=== PATIENT | male | born 1975 | race Caucasian/White ===

== ENCOUNTER 2018-01-09 03:09 | Outpatient (CLI) | payer OTHER | END 2018-01-09 03:10 | disposition critical access hospital (66) | LOC: EMS 03:09 | PROVIDERS: ATTEND Surgery | DX: R55 Syncope and collapse (principal) | CPT/HCPCS: A0425; A0427 ==

== ENCOUNTER 2018-01-09 03:41 | Emergency (ER) | payer OTHER ==
[2018-01-09] MEDS ORDERED: ONDANSETRON 4 MG/2 ML VIAL IVP STA (03:49)
[2018-01-09] MEDS ORDERED: SODIUM CHLORIDE 0.9% 1,000 ML IV ONE ×2 (03:49→05:20)
[2018-01-09 04:01] LABS: BASOPHILS % (AUTO) 0.5 %; EOSINOPHILS # (AUTO) 0.1 10^3/uL (0.0-0.7); EOSINOPHILS % (AUTO) 1.5 %; HGB - HEMOGLOBIN 13.1 g/dL (14.0-18.0); LYMPHOCYTES # (AUTO) 1.6 10^3/uL (1.5-3.5); LYMPHOCYTES % (AUTO) 23.5 %; MEAN CORPUSCULAR HGB CONC 34.6 g/dL (32.0-36.0); MEAN CORPUSCULAR VOLUME 86.9 fL (80.0-94.0); MEAN PLATELET VOLUME 6.3 fL (7.4-11.4); MONOCYTES # (AUTO) 0.5 10^3/uL (0.0-1.0); MONOCYTES % (AUTO) 7.4 %; NEUTROPHILS # (AUTO) 4.7 10^3/uL (1.5-6.6); NEUTROPHILS % (AUTO) 67.1 %; PLT - PLATELET COUNT 216 10^3/uL (130-450); RED BLOOD COUNT 4.35 10^6/uL (4.70-6.10); RED CELL DISTRIBUTION WIDTH 12.5 % (12.0-15.0); WHITE BLOOD COUNT 6.9 x10^3/uL (4.8-10.8)
--- NOTE | 2018-01-09 04:13 | ED Physician Documentation ---
PD HPI SYNCOPE - Stated complaint Stated Complaint: SYNCOPE, POSS SZ, FOAMING AT THE MOUTH - Chief complaint Chief Complaint: Neuro - History obtained from History obtained from: Patient, EMS - History of Present Illness Witnessed: Witnessed Timing - onset: Today Duration: Minutes Preceding symptoms: Light headed, Other Associated symptoms: Seizure, Headache Contributing factors: Just stood up Injury occurred: Fell, Head injury Similar symptoms before: Has not had sx before Recently seen: Not recently seen - Additional information Additional information: patient is a 42 year old male with a history of chronic back pain who is presenting to the emergency department for syncope and possible seizure episode. According to patient, ems and family patient got up tonight to go to the bathroom. After going to the bathroom patient was going to get a glass of water, patient got a little light headed and then passed out. The heard the fall and came out and saw the patient. Patient was lying face foreward. Patient was rolled over and had an episode where it seemed like he has having a hard time breathing. patient contracted and stared straight ahead. ems was called. Review of Systems Constitutional: denies: Fever, Chills Eyes: denies: Photophobia Ears: denies: Ear pain, Drainage/discharge Nose: reports: Sinus pressure / pain Throat: denies: Dental pain / toothache, Oral lesions / sores Cardiac: denies: Chest pain / pressure, Palpitations Respiratory: denies: Dyspnea, Cough GI: reports: Nausea. denies: Vomiting, Constipation, Diarrhea : reports: Reviewed and negative Skin: denies: Rash, Lesions Musculoskeletal: denies: Neck pain, Back pain, Extremity pain Neurologic: reports: Syncope, Seizure, Headache Immunocompromised: denies: Immunocompromised PD PAST MEDICAL HISTORY - Past Medical History Past Medical History: No - Past Surgical History Past Surgical History: No - Present Medications Home Medications: Ambulatory Orders Medication Instructions Recorded Confirmed Dicyclomine [Bentyl] 20 mg PO QID PRN #20 capsule 01/04/16 Ondansetron HCl [Zofran] 4 mg PO Q6H PRN #20 tablet 01/04/16 Oxycodone HCl/Acetaminophen 1 each PO Q6H PRN #20 tablet 01/04/16 [Percocet 5-325 mg Tablet] - Allergies Allergies/Adverse Reactions: Allergies Allergy/AdvReac Type Severity Reaction Status Date / Time No Known Drug Allergies Allergy Verified 01/09/18 03:46 - Social History Does the pt smoke?: No Smoking Status: Never smoker Does the pt drink ETOH?: No Does the pt have substance abuse?: No - Immunizations Immunizations are current?: Yes PD ED PE NORMAL - Vitals Vital signs reviewed: Yes - General General: Alert and oriented X 3 - Neck Neck: No bony TTP - Cardiac Cardiac: RRR, No murmur - Respiratory Respiratory: No respiratory distress, Clear bilaterally - Abdomen Abdomen: Soft, Non tender, Non distended - Derm Derm: Normal color, Warm and dry - Extremities Extremities: No deformity, No edema - Neuro Neuro: Alert and oriented X 3, solid tire finisher 2-12 intact, No motor deficit, No sensory deficit, Normal speech Eye Opening: Spontaneous Motor: Obeys Commands Verbal: Oriented GCS Score: 15 PD ED PE EXPANDED - HEENT HEENT: Head injury (mild tenderness to palpation of right maxillary region), EOMI. No: Gaze palsy Results - Vitals Vitals: Vital Signs - 24 hr 01/09/18 01/09/18 01/09/18 03:42 04:05 05:34 Heart Rate 76 71 77 Respiratory 16 16 16 Rate Blood Pressure 129/76 127/67 O2 Saturation 100 96 97 Oxygen O2 Source Room air - EKG (time done) 0347 Rate: Rate (enter#) (71) Rhythm: NSR [place]ier: Normal Intervals: Normal NM QRS: Normal Ischemia: Normal ST segments Compare to prior EKG: Old EKG unavailable - Labs Labs: Laboratory Tests 01/09/18 01/09/18 01/09/18 03:57 03:57 03:57 WBC 6.9 RBC 4.35 L Hgb 13.1 L Hct 37.8 L MCV 86.9 MCH 30.0 MCHC 34.6 RDW 12.5 Plt Count 216 MPV 6.3 L Neut # 4.7 Lymph # 1.6 [place] # 0.5 Eos # 0.1 Baso # 0.0 Absolute Nucleated RBC 0.00 Nucleated RBC % 0.0 Sodium 138 Potassium 3.2 L Chloride 103 Carbon Dioxide 27 Anion Gap 8.0 BUN 15 Creatinine 1.0 Estimated GFR (MDRD) 82 L Glucose 125 H Calcium 8.8 Phosphorus 2.4 L Magnesium 1.7 Total Bilirubin 0.6 AST 18 ALT 19 Alkaline Phosphatase 76 Troponin I < 0.04 B-Natriuretic Peptide Total Protein 6.7 Albumin 4.1 Globulin 2.6 Albumin/Globulin Ratio 1.6 Lipase 27 TSH Urine Color Urine Clarity Urine pH Ur Specific [place] Urine Protein Urine Glucose (UA) Urine Ketones Urine Occult Blood Urine Nitrite Urine Bilirubin Urine Urobilinogen Ur Leukocyte Esterase Ur Microscopic Review Urine Culture Comments Urine Opiates Screen Ur Oxycodone Screen Urine Methadone Screen Ur Propoxyphene Screen Ur Barbiturates Screen Ur Tricyclics Screen Ur Phencyclidine Scrn Ur Amphetamine Screen U Methamphetamines Scrn U Benzodiazepines Scrn Urine Cocaine Screen U Cannabinoids Screen 01/09/18 01/09/18 01/09/18 03:57 03:57 04:48 WBC RBC Hgb Hct MCV MCH MCHC RDW Plt Count MPV Neut # Lymph # [place] # Eos # Baso # Absolute Nucleated RBC Nucleated RBC % Sodium Potassium Chloride Carbon Dioxide Anion Gap BUN Creatinine Estimated GFR (MDRD) Glucose Calcium Phosphorus Magnesium Total Bilirubin AST ALT Alkaline Phosphatase Troponin I B-Natriuretic Peptide 15 Total Protein Albumin Globulin Albumin/Globulin Ratio Lipase TSH 3.85 Urine Color YELLOW Urine Clarity CLEAR Urine pH 6.5 Ur Specific [place] 1.020 Urine Protein TRACE Urine Glucose (UA) NEGATIVE Urine Ketones NEGATIVE Urine Occult Blood NEGATIVE Urine Nitrite NEGATIVE Urine Bilirubin NEGATIVE Urine Urobilinogen 0.2 (NORMAL) Ur Leukocyte Esterase NEGATIVE Ur Microscopic Review NOT INDICATED Urine Culture Comments NOT INDICATED Urine Opiates Screen NEGATIVE Ur Oxycodone Screen POSITIVE H Urine Methadone Screen NEGATIVE Ur Propoxyphene Screen NEGATIVE Ur Barbiturates Screen NEGATIVE Ur Tricyclics Screen NEGATIVE Ur Phencyclidine Scrn NEGATIVE Ur Amphetamine Screen NEGATIVE U Methamphetamines Scrn NEGATIVE U Benzodiazepines Scrn NEGATIVE Urine Cocaine Screen NEGATIVE U Cannabinoids Screen NEGATIVE - Rads (name of study) ct head Radiology: Final report received (normal) PD MEDICAL DECISION MAKING - ED course Complexity details: reviewed old records, reviewed results, re-evaluated patient , considered differential, d/w patient, d/w family ED course: Patient was seen and examined at bedside. ekg was performed and was within normal limits. IV access was gained and labs were drawn. Imaging was ordered. Patient was treated with a 2 liter bolus and zofran. Patient stated that he did not want pain medications. patient's diagnostics were within normal limits. Patient ramos garret syncope rules were negative. patient had no other syncopal or seizure activity in the emergency department. patient required no further work up and was stable for discharge with outpatient follow up. Departure - Departure Disposition: 01 Home, Self Care Clinical Impression: Syncope Condition: Good Instructions: ED Fainting Unkn Cause Follow-Up: QUINTON ZHONG JR, [Primary Care Provider] - Tomorrow Comments: Your diagnostic today were within normal limits. there were no abnormalities on your blood work, ekg or CT. It is difficult to say what caused your symptoms exactly but it was likely due to a sudden drop in blood pressure. it is important that you follow up with your doctor this week for re-evaluation and possibly and echocardiogram. Make sure you stay well hydrated and take your time between changing positions. You should return to the emergency department at any time for new, worsening or uncontrollable symptoms.
[2018-01-09 04:15] LABS: ALBUMIN 4.1 g/dL (3.2-5.5); ALBUMIN/GLOBULIN RATIO 1.6 (1.0-2.2); BILIRUBIN,TOTAL 0.6 mg/dL (0.2-1.0); CALCIUM 8.8 mg/dL (8.5-10.3); MAGNESIUM 1.7 mg/dL (1.7-2.8); PHOSPHORUS 2.4 mg/dL (2.5-4.6); TOTAL PROTEIN 6.7 g/dL (6.7-8.2)
[2018-01-09 04:55] LABS: MUDS CUTOFF CONCENTRATIONS CUTOFF CONC BELOW:
[2018-01-09 05:01] LABS: BILIRUBIN,URINE NEGATIVE (NEGATIVE); GLUCOSE, URINE (UA) NEGATIVE (NEGATIVE); KETONES,URINE (UA) NEGATIVE (NEGATIVE); LEUKOCYTE ESTERASE, URINE NEGATIVE (NEGATIVE); NITRITE,URINE NEGATIVE (NEGATIVE); OCCULT BLOOD,URINE NEGATIVE (NEGATIVE); PH,URINE 6.5 PH (5.0-7.5); PROTEIN,URINE TRACE mg/dL (NEGATIVE); UROBILINOGEN,URINE 0.2 (NORMAL) E.U./dL (NORMAL)
[2018-01-09 05:12] LABS: AMPHETAMINE SCREEN,URINE NEGATIVE (NEGATIVE); BENZODIAZEPINES SCREEN, URINE NEGATIVE (NEGATIVE); CLARITY,URINE CLEAR (CLEAR); COCAINE SCREEN URINE NEGATIVE (NEGATIVE); METHADONE SCREEN, URINE NEGATIVE (NEGATIVE); METHAMPHETAMINES SCREEN, URINE NEGATIVE (NEGATIVE); OPIATE SCREEN, URINE NEGATIVE (NEGATIVE); OXYCODONE SCREEN, URINE POSITIVE (NEGATIVE); PROPOXYPHENE SCREEN, URINE NEGATIVE (NEGATIVE); TRICYCLIC ANTIDEPRESSANT,URINE NEGATIVE (NEGATIVE)
--- NOTE | 2018-01-09 05:24 | CT Report ---
EXAM: CT HEAD EXAM DATE: 01/09/2018 05:06 AM. CLINICAL HISTORY: Fall, seizure. COMPARISON: None. TECHNIQUE: Multiaxial CT images were obtained from the foramen magnum to the vertex. Reformats: Coron al. IV contrast: None. In accordance with CT protocol optimization, one or more of the following dose reduction techniques w ere utilized for this exam: automated exposure control, adjustment of mA and/or KV based on patient s ize, or use of iterative reconstructive technique. FINDINGS: Parenchyma: No intraparenchymal hemorrhage. No evidence of mass, midline shift, or CT findings of inf arction. Velázquez-white differentiation is distinct. Extraaxial Spaces: Normal for age. No subdural or epidural collections identified. Ventricles: Normal in size and position. Sinuses and Orbits: Imaged paranasal sinuses, orbits, and mastoids show no significant abnormality. Bones: No evidence of fracture or calvarial defect. Other: None. IMPRESSION: Normal head CT. [facility] Referring Provider Line: [phone] SITE ID: [id number]
--- NOTE | 2018-01-09 05:24 | CT Preliminary Report ---
Exam: CT HEAD W/O IMPRESSION: Normal head CT. [facility] SITE ID: [id number]
[2018-01-09] MEDS ORDERED: POTASSIUM BICARB 25 MEQ TABLET PO STA (05:33)
[2018-01-09] MEDS ORDERED: ONDANSETRON ODT 4 MG Prepack 2 TL PRN (05:39)
[2018-01-09 06:39] VITALS: BP 117/76
== END 2018-01-09 06:39 | disposition home or self-care (01) ==
LOC: EDUNIT# → ED 03:41
DX: R55 Syncope and collapse (principal); S09.90XA Unspecified injury of head, initial encounter; W18.30XA Fall on same level, unspecified, initial encounter
CPT/HCPCS: 36415; 70450; 80053; 80306; 81003; 83690; 83735; 83880; 84100; 84443; 84484; 85025; 93005; 96361; 96374; 99284; A9270; 81001; 87086

== ENCOUNTER 2018-01-19 12:21 | Outpatient (CLI) | payer OTHER | END 2018-01-19 12:22 | disposition critical access hospital (66) | LOC: EMS 12:21 | PROVIDERS: ATTEND Surgery | DX: R42 Dizziness and giddiness (principal) | CPT/HCPCS: A0425; A0427 ==

== ENCOUNTER 2018-01-19 12:29 | Emergency (ER) | payer OTHER ==
[2018-01-19 13:29] LABS: BILIRUBIN,URINE NEGATIVE (NEGATIVE); GLUCOSE, URINE (UA) NEGATIVE (NEGATIVE); KETONES,URINE (UA) NEGATIVE (NEGATIVE); LEUKOCYTE ESTERASE, URINE NEGATIVE (NEGATIVE); NITRITE,URINE NEGATIVE (NEGATIVE); OCCULT BLOOD,URINE NEGATIVE (NEGATIVE); PROTEIN,URINE NEGATIVE (NEGATIVE); UROBILINOGEN,URINE 0.2 (NORMAL) E.U./dL (NORMAL)
[2018-01-19 13:31] LABS: CLARITY,URINE CLEAR (CLEAR)
--- NOTE | 2018-01-19 13:34 | ED Physician Documentation ---
PD HPI SYNCOPE - Stated complaint Stated Complaint: DIZZY - Chief complaint Chief Complaint: Neuro - History obtained from History obtained from: Patient - History of Present Illness Witnessed: Witnessed (42-year-old gentleman with benign past medical history, he had a syncopal episode a week and a half ago at night. He was evaluated here , there were no significant findings. Follow-up with his physician and he has an appoint with a neurologist. In the interim he has started Concerta. He did not sleep well last night. He was seen in a standing position today and started to feel nauseous and then dizzy and nearly passed out. He laid down and did not fully syncopized. There is no seizure activity. He feels pretty much back to normal now and there was no associated chest pain, trouble breathing, calf pain or pedal edema.) Review of Systems Constitutional: reports: Fatigue. denies: Fever, Chills Cardiac: denies: Chest pain / pressure, Palpitations, Pedal edema, Calf pain Respiratory: denies: Dyspnea, Cough, Hemoptysis, Wheezing PD PAST MEDICAL HISTORY - Past Medical History Past Medical History: Yes Psych: ADD/ADHD - Past Surgical History Past Surgical History: No - Present Medications Home Medications: Ambulatory Orders Medication Instructions Recorded Confirmed Methylphenidate HCl [Concerta] 27 mg PO 01/19/18 - Allergies Allergies/Adverse Reactions: Allergies Allergy/AdvReac Type Severity Reaction Status Date / Time No Known Drug Allergies Allergy Verified 01/19/18 12:33 - Social History Does the pt smoke?: No Smoking Status: Never smoker Does the pt drink ETOH?: No Does the pt have substance abuse?: No - Immunizations Immunizations are current?: Yes PD ED PE NORMAL - Vitals Vital signs reviewed: Yes - General General: Alert and oriented X 3, No acute distress - Neck Neck: Supple, no meningeal sign, No bony TTP - Cardiac Cardiac: RRR, No murmur - Respiratory Respiratory: No respiratory distress, Clear bilaterally - Abdomen Abdomen: Non tender - Extremities Extremities: No edema, No calf tenderness / cord - Neuro Neuro: Alert and oriented X 3, Normal speech Results - Vitals Vitals: Vital Signs - 24 hr 01/19/18 01/19/18 12:29 13:00 Temperature 37.1 C Heart Rate 82 83 Respiratory 16 14 Rate Blood Pressure 139/115 H 146/84 H O2 Saturation 100 100 Oxygen O2 Source Room air - EKG (time done) 1232 Rate: Rate (enter#) (86) Rhythm: NSR Comfort: Normal Intervals: Normal MA QRS: Normal Ischemia: Normal ST segments Computer interpretation: Agree with computer - Labs Labs: Laboratory Tests 01/19/18 01/19/18 01/19/18 13:19 13:35 13:35 WBC 7.8 RBC 4.66 L Hgb 14.0 Hct 40.9 L MCV 87.7 MCH 29.9 MCHC 34.1 RDW 12.3 Plt Count 268 MPV 6.4 L Neut # 6.1 Lymph # 1.1 L [place] # 0.5 Eos # 0.0 Baso # 0.0 Absolute Nucleated RBC 0.00 Nucleated RBC % 0.0 Sodium 137 Potassium 3.9 Chloride 102 Carbon Dioxide 28 Anion Gap 7.0 BUN 12 Creatinine 1.0 Estimated GFR (MDRD) 82 L Glucose 107 H Calcium 9.2 Urine Color YELLOW Urine Clarity CLEAR Urine pH 6.0 Ur Specific [place] <=1.005 Urine Protein NEGATIVE Urine Glucose (UA) NEGATIVE Urine Ketones NEGATIVE Urine Occult Blood NEGATIVE Urine Nitrite NEGATIVE Urine Bilirubin NEGATIVE Urine Urobilinogen 0.2 (NORMAL) Ur Leukocyte Esterase NEGATIVE Ur Microscopic Review NOT INDICATED Urine Culture Comments NOT INDICATED PD MEDICAL DECISION MAKING - ED course ED course: 42-year-old gentleman with recurrent syncope, did not actually syncopized today but got close. He syncopized week and a half ago and has a follow-up with a neurologist, his diagnostics are normal here but discussed need probably for follow-up with his PCP to discuss echo and/or Holter. Departure - Departure Disposition: 01 Home, Self Care Clinical Impression: Syncope Qualifiers: Syncope type: unspecified Qualified Code(s): R55 - Syncope and collapse Condition: Good Record reviewed to determine appropriate education?: Yes Instructions: ED Fainting Unkn Cause Comments: Is reasonable to follow-up with the neurologist as scheduled, but also discuss echocardiography and/or Holter monitoring with your primary care physician. Drink plenty fluids. Get plenty of sleep. Return if worse.
[2018-01-19 13:43] LABS: BASOPHILS % (AUTO) 0.6 %; EOSINOPHILS % (AUTO) 0.5 %; LYMPHOCYTES # (AUTO) 1.1 10^3/uL (1.5-3.5); LYMPHOCYTES % (AUTO) 14.6 %; MEAN CORPUSCULAR HEMOGLOBIN 29.9 pg (27.0-31.0); MEAN CORPUSCULAR HGB CONC 34.1 g/dL (32.0-36.0); MEAN CORPUSCULAR VOLUME 87.7 fL (80.0-94.0); MEAN PLATELET VOLUME 6.4 fL (7.4-11.4); MONOCYTES # (AUTO) 0.5 10^3/uL (0.0-1.0); MONOCYTES % (AUTO) 5.8 %; NEUTROPHILS # (AUTO) 6.1 10^3/uL (1.5-6.6); NEUTROPHILS % (AUTO) 78.5 %; PLT - PLATELET COUNT 268 10^3/uL (130-450); RED BLOOD COUNT 4.66 10^6/uL (4.70-6.10); RED CELL DISTRIBUTION WIDTH 12.3 % (12.0-15.0); WHITE BLOOD COUNT 7.8 x10^3/uL (4.8-10.8)
[2018-01-19 13:56] LABS: CALCIUM 9.2 mg/dL (8.5-10.3)
[2018-01-19 14:29] VITALS: BP 144/80
== END 2018-01-19 14:30 | disposition home or self-care (01) ==
LOC: EDUNIT# → ED 12:29
DX: R55 Syncope and collapse (principal)
CPT/HCPCS: 36415; 80048; 81001; 81003; 85025; 87086; 93005; 99283; 99284

== ENCOUNTER 2021-05-13 14:20 | Emergency (ER) | payer OTHER ==
--- NOTE | 2021-05-13 14:34 | ED Physician Documentation ---
PD HPI URI - Stated complaint Stated Complaint: COVID + - History obtained from History obtained from: Patient - History of Present Illness Timing - onset: Today, Last night (with feeling of nausea, lightheaded, aching, upset stomach and some loose stool.), How many days ago (he had onset of URI symptoms and fever 9 days ago and felt ill the ensuing week. Had COVID test that was positive. Was starting to feel better but then aches and fever again, so did TeleHealth visit with provider that Rx Ivermectin dosing. Pt started with 15 mg 3 d ago, 24 mg 2 d ago, 36 mg yest.) Timing duration: Days (1) Timing details: Gradual onset, Still present Associated symptoms: Fever (the past 5-6 days.), Chills, Dry cough, Dyspnea. No: Sore throat, Chest pain Contributing factors: COPD / asthma (very infrequent symptoms from environmental allergies. Has had dyspnea the past 9 days but has not used his Albuterol inhaler.). 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 He is masked elsewhere. He has not had VOCID vaccine.) Improves by: Rest, Other (he has not tried his inhaler nor other meds for symptoms except recent Ivermectin.) Worsened by: Activity Similar symptoms before: Has not had sx before Recently seen: Clinic (had COVID test at site in [place] 6 days ago that was positive (results later in the day).) Review of Systems Constitutional: reports: Fever, Chills, Myalgias, Fatigue Nose: reports: Congestion. denies: Rhinorrhea / runny nose Throat: denies: Sore throat Cardiac: denies: Chest pain / pressure, Palpitations, Pedal edema, Calf pain Respiratory: reports: Dyspnea, Cough, Wheezing GI: reports: Nausea. denies: Abdominal Pain, Vomiting, Diarrhea (but loose stools) Skin: denies: Rash, Lesions Neurologic: reports: Altered mental status (feeling sluggish thought process and lightheaded.). denies: Headache Endocrine: denies: Weight loss Immunocompromised: denies: Immunocompromised PD PAST MEDICAL HISTORY - Past Medical History Cardiovascular: None Respiratory: Asthma Neuro: None Endocrine/Autoimmune: None Psych: ADD/ADHD - Past Surgical History Past Surgical History: No - Present Medications Home Medications: Ambulatory Orders Medication Instructions Recorded Confirmed Methylphenidate HCl [Concerta] 27 mg PO 01/19/18 Albuterol Sulf [Ventolin Hfa 3 - 4 puffs INH Q4HR PRN #1 inhaler 05/13/21 Inhaler] dexAMETHasone [Decadron] 4 mg PO DAILY #5 tablet 05/13/21 - Allergies Allergies/Adverse Reactions: Allergies Allergy/AdvReac Type Severity Reaction Status Date / Time No Known Drug Allergies Allergy Verified 05/13/21 14:44 - Social History Does the pt smoke?: No Smoking Status: Never smoker Does the pt drink ETOH?: No Does the pt have substance abuse?: No - Immunizations Immunizations are current?: Yes PD ED PE NORMAL - Vitals Vital signs reviewed: Yes - General General: Alert and oriented X 3, No acute distress, Well developed/nourished - HEENT HEENT: Pharynx benign - Neck Neck: Supple, no meningeal sign, No adenopathy - Cardiac Cardiac: RRR, No murmur - Respiratory Respiratory: Clear bilaterally (no wheeze nor crackles. ) - Abdomen Abdomen: Soft, Non tender Results - Vitals Vitals: Vital Signs - 24 hr 05/13/21 05/13/21 05/13/21 14:30 15:13 16:03 Temperature 38.1 C H Heart Rate 76 77 65 Respiratory 18 10 L 10 L Rate Blood Pressure 155/88 H 120/84 H 124/71 O2 Saturation 99 99 100 05/13/21 05/13/21 05/13/21 16:38 16:50 17:33 Temperature Heart Rate 69 80 74 Respiratory 9 L 17 Rate Blood Pressure 128/80 115/79 O2 Saturation 99 97 05/13/21 18:00 Temperature Heart Rate 73 Respiratory 10 L Rate Blood Pressure 124/77 O2 Saturation 97 Oxygen O2 Source Room air - Labs Labs: Laboratory Tests 05/13/21 05/13/21 15:25 15:25 WBC 3.4 L RBC 4.99 Hgb 14.8 Hct 44.5 MCV 89.2 MCH 29.7 MCHC 33.3 RDW 12.9 Plt Count 162 MPV 9.2 Neut # (Auto) 1.8 Lymph # (Auto) 1.2 L Terry # (Auto) 0.4 Eos # (Auto) 0.0 Baso # (Auto) 0.0 Absolute Nucleated RBC 0.00 Nucleated RBC % 0.0 Sodium 139 Potassium 3.7 Chloride 103 Carbon Dioxide 26 Anion Gap 10.0 BUN 10 Creatinine 0.7 Estimated GFR (MDRD) 122 Glucose 141 H Calcium 9.2 Total Bilirubin 0.3 AST 20 ALT 19 Alkaline Phosphatase 77 Total Protein 7.3 Albumin 4.0 Globulin 3.3 Albumin/Globulin Ratio 1.2 Lipase 41 - Rads (name of study) chest xray Radiology: Prelim report reviewed (no infiltrates nor acute process. ), See rad report PD MEDICAL DECISION MAKING - ED course Complexity details: re-evaluated patient (e felt much better breathing with Albutero MDI few puffs. ), considered differential (consider re-increased symptoms due to fluctuation in COVID progression, versus secondary pneumonia, versus other. With now symptoms from IVermectin or again from pneumonia/etc. Can check labs and CXR. ), d/w patient Departure - Departure Disposition: 01 Home, Self Care Clinical Impression: Side effect of medication, COVID-19 Dyspnea Qualifiers: Dyspnea type: shortness of breath Qualified Code(s): R06.02 - Shortness of breath Condition: Stable Record reviewed to determine appropriate education?: Yes Prescriptions: Albuterol Sulf [Ventolin Hfa Inhaler] 3 - 4 puffs INH Q4HR PRN #1 inhaler PRN Reason: Shortness Of Air/Wheezing dexAMETHasone [Decadron] 4 mg PO DAILY #5 tablet Comments: Stay well-hydrated. Obviously you will want to decrease the dosing on the ivermectin or to stop it. I would suggest no dose for a day and if you were to continue it, go with the lower dose of 12 mg daily every day for 5 days. Use your albuterol inhaler 2 to 3 puffs 4 times a day for the next several days to week to help with breathing. Decadron steroid inflammation of the airways daily for the next 5 days. Transmitted your prescription to [facility] in [place]. Discharge Date/Time: 05/13/21 18:50
[2021-05-13] MEDS ORDERED: DEXAMETHASONE 10 MG/ML VIAL IVP STA (15:13)
[2021-05-13] MEDS ORDERED: KETOROLAC 15 MG/ML VIAL IVP STA (15:13)
[2021-05-13] MEDS ORDERED: SODIUM CHLORIDE 0.9% 1,000 ML IV STA (15:13)
[2021-05-13] MEDS ORDERED: ALBUTEROL 1 PUFF INH STA (15:13)
--- NOTE | 2021-05-13 15:31 | XRAY Report ---
PROCEDURE: Chest 1 View X-Ray INDICATIONS: Cough, dyspnea TECHNIQUE: One view of the chest was acquired. COMPARISON: None FINDINGS: Surgical changes and devices: None. Lungs and pleura: No pleural effusions or pneumothorax. Lungs are clear. Mediastinum: Mediastinal contours appear normal. Heart size is normal. Bones and chest wall: No suspicious bony lesions. Overlying soft tissues appear unremarkable. IMPRESSION: No acute cardiopulmonary process demonstrated radiographically. Reviewed by: Nic Toussaint MD on 05/13/2021 3:29 PM PDT Approved by: Nic Toussaint MD on 05/13/2021 3:29 PM PDT Station ID: [id number]
[2021-05-13 15:39] LABS: HCT - HEMATOCRIT 44.5 % (42.0-52.0); HGB - HEMOGLOBIN 14.8 g/dL (14.0-18.0); LYMPHOCYTES # (AUTO) 1.2 10^3/uL (1.5-3.5); LYMPHOCYTES % (AUTO) 35.4 %; MEAN CORPUSCULAR HEMOGLOBIN 29.7 pg (27.0-31.0); MEAN CORPUSCULAR HGB CONC 33.3 g/dL (32.0-36.0); MEAN CORPUSCULAR VOLUME 89.2 fL (80.0-94.0); MEAN PLATELET VOLUME 9.2 fL (7.4-11.4); MONOCYTES # (AUTO) 0.4 10^3/uL (0.0-1.0); NEUTROPHILS # (AUTO) 1.8 10^3/uL (1.5-6.6); NEUTROPHILS % (AUTO) 53.3 %; PLT - PLATELET COUNT 162 10^3/uL (130-450); RED BLOOD COUNT 4.99 10^6/uL (4.70-6.10); RED CELL DISTRIBUTION WIDTH 12.9 % (12.0-15.0); WHITE BLOOD COUNT 3.4 x10^3/uL (4.8-10.8)
[2021-05-13 15:52] LABS: ALBUMIN/GLOBULIN RATIO 1.2 (1.0-2.2); BILIRUBIN,TOTAL 0.3 mg/dL (0.2-1.0); CALCIUM 9.2 mg/dL (8.5-10.3); CREATININE 0.7 mg/dL (0.6-1.2); POTASSIUM 3.7 mmol/L (3.5-5.0); TOTAL PROTEIN 7.3 g/dL (6.7-8.2)
[2021-05-13 18:17] VITALS: BP 124/77
== END 2021-05-13 18:50 | disposition home or self-care (01) ==
LOC: ED 14:20
DX: U07.1 COVID-19 (principal); T50.905A Adverse effect of unspecified drugs, medicaments and biological substances, initial encounter
CPT/HCPCS: 36415; 80053; 83690; 85025; 94640; 96361; 96374; 96375; 99284

== ENCOUNTER 2023-05-25 11:44 | Outpatient (CLI) | payer OTHER ==
[2023-05-25 14:36] LABS: BASOPHILS % (AUTO) 0.2 %; EOSINOPHILS # (AUTO) 0.1 10^3/uL (0.0-0.7); EOSINOPHILS % (AUTO) 1.3 %; HCT - HEMATOCRIT 41.1 % (42.0-52.0); HGB - HEMOGLOBIN 13.5 g/dL (14.0-18.0); LYMPHOCYTES # (AUTO) 1.2 10^3/uL (1.5-3.5); LYMPHOCYTES % (AUTO) 15.2 %; MEAN CORPUSCULAR HEMOGLOBIN 30.1 pg (27.0-31.0); MEAN CORPUSCULAR HGB CONC 32.8 g/dL (32.0-36.0); MEAN CORPUSCULAR VOLUME 91.7 fL (80.0-94.0); MEAN PLATELET VOLUME 9.2 fL (7.4-11.4); MONOCYTES # (AUTO) 0.4 10^3/uL (0.0-1.0); NEUTROPHILS # (AUTO) 6.3 10^3/uL (1.5-6.6); NEUTROPHILS % (AUTO) 77.9 %; PLT - PLATELET COUNT 257 10^3/uL (130-450); RED BLOOD COUNT 4.48 10^6/uL (4.70-6.10); RED CELL DISTRIBUTION WIDTH 11.9 % (12.0-15.0); WHITE BLOOD COUNT 8.2 x10^3/uL (4.8-10.8)
[2023-05-25 15:05] LABS: ALBUMIN 4.6 g/dL (3.2-5.5); ALBUMIN/GLOBULIN RATIO 1.8 (1.0-2.2); BILIRUBIN,TOTAL 0.5 mg/dL (0.2-1.0); CALCIUM 9.8 mg/dL (8.5-10.3); CREATININE 0.8 mg/dL (0.6-1.3); POTASSIUM 4.3 mmol/L (3.5-4.5); TOTAL PROTEIN 7.1 g/dL (6.4-8.9)
[2023-05-25 15:11] LABS: THYROID STIMULATING HORMONE 2.61 uIU/mL (0.34-5.60)
== END 2023-05-25 11:45 | disposition home or self-care (01) ==
LOC: LAB.S 11:44
PROVIDERS: ATTEND Physician Assistant Medical
DX: R42 Dizziness and giddiness (principal)
CPT/HCPCS: 36415; 80053; 84443; 85025

== ENCOUNTER 2023-11-04 10:12 | Outpatient (CLI) | payer OTHER ==
[2023-11-04 15:51] LABS: THYROID STIMULATING HORMONE 1.01 uIU/mL (0.34-5.60)
== END 2023-11-04 10:13 | disposition home or self-care (01) ==
LOC: LAB.S 10:12
PROVIDERS: ATTEND Registered Nurse
DX: R22.1 Localized swelling, mass and lump, neck (principal); R13.10 Dysphagia, unspecified
CPT/HCPCS: 36415; 84439; 84443; 84481; 86376; 86800

== ENCOUNTER 2023-11-14 08:04 | Outpatient (CLI) | payer OTHER ==
[2023-11-14 14:33] LABS: BASOPHILS % (AUTO) 0.7 %; EOSINOPHILS # (AUTO) 0.1 10^3/uL (0.0-0.7); EOSINOPHILS % (AUTO) 1.9 %; HCT - HEMATOCRIT 42.7 % (42.0-52.0); HGB - HEMOGLOBIN 13.6 g/dL (14.0-18.0); LYMPHOCYTES # (AUTO) 1.2 10^3/uL (1.5-3.5); LYMPHOCYTES % (AUTO) 29.1 %; MEAN CORPUSCULAR HEMOGLOBIN 29.8 pg (27.0-31.0); MEAN CORPUSCULAR HGB CONC 31.9 g/dL (32.0-36.0); MEAN CORPUSCULAR VOLUME 93.4 fL (80.0-94.0); MEAN PLATELET VOLUME 8.9 fL (7.4-11.4); MONOCYTES # (AUTO) 0.3 10^3/uL (0.0-1.0); MONOCYTES % (AUTO) 7.7 %; NEUTROPHILS # (AUTO) 2.5 10^3/uL (1.5-6.6); NEUTROPHILS % (AUTO) 59.4 %; PLT - PLATELET COUNT 283 10^3/uL (130-450); RED BLOOD COUNT 4.57 10^6/uL (4.70-6.10); RED CELL DISTRIBUTION WIDTH 12.5 % (12.0-15.0); WHITE BLOOD COUNT 4.3 x10^3/uL (4.8-10.8)
[2023-11-14 14:46] LABS: INR 1.1 (0.8-1.2)
[2023-11-14 14:58] LABS: THYROID STIMULATING HORMONE 2.45 uIU/mL (0.34-5.60)
[2023-11-14 15:09] LABS: ALBUMIN 4.4 g/dL (3.2-5.5); ALBUMIN/GLOBULIN RATIO 1.6 (1.0-2.2); BILIRUBIN,TOTAL 0.7 mg/dL (0.2-1.0); CREATININE 0.9 mg/dL (0.6-1.3); POTASSIUM 4.1 mmol/L (3.5-4.5); TOTAL PROTEIN 7.2 g/dL (6.4-8.9)
[2023-11-14 19:50] LABS: ESTIMATED AVERAGE GLUCOSE 103 mg/dL (70-100); HEMOGLOBIN A1c% 5.2 % (4.27-6.07)
== END 2023-11-14 08:05 | disposition home or self-care (01) ==
LOC: LAB.S 08:04
PROVIDERS: ATTEND Registered Nurse
DX: R23.3 Spontaneous ecchymoses (principal); R21 Rash and other nonspecific skin eruption; Z76.89 Persons encountering health services in other specified circumstances
CPT/HCPCS: 36415; 80053; 82306; 82607; 83036; 84443; 85025; 85610

== ENCOUNTER 2023-11-15 20:54 | Outpatient (CLI) | payer OTHER ==
--- NOTE | 2023-11-16 21:03 | Ultrasound Report ---
PROCEDURE: Soft Tissue Head or Neck INDICATIONS: THROAT SWELLING TECHNIQUE: Real-time scanning was performed of the thyroid gland, with image documentation. COMPARISON: None FINDINGS: Right: Thyroid lobe measures 5.4 x 1.9 x 1.4 cm, and is homogeneous in echotexture. Left: Thyroid lobe measures 5.2 x 2.2 x 1.4 cm, and is homogenous in echotexture. Isthmus: 0.4 cm thick. Thyroid nodules. A few nonenlarged lymph nodes with normal size and morphology. IMPRESSION: Normal sonographic appearance of the thyroid gland with no nodules or abnormal lymphadenopathy. Reviewed by: Jessika Lugo MD on 11/16/2023 9:01 PM PDT Approved by: Jessika Lugo MD on 11/16/2023 9:01 PM PDT Station ID: [id number]
== END 2023-11-15 20:55 | disposition home or self-care (01) ==
LOC: DI 20:54
PROVIDERS: ATTEND Registered Nurse
DX: R22.1 Localized swelling, mass and lump, neck (principal); R13.19 Other dysphagia